=== PATIENT | male | born 1955 | race Caucasian/White ===

== ENCOUNTER 2019-03-09 07:52 | Day surgery (SDC) | payer MEDICARE, BC ==
[~2019-03-09 07:52] MED LIST: AMLO5 PO; CETI5 PO; HYDACE5; Hair, Skin & N1 EACH PO; IBUP800; LORA.5 PO; MELO7.5 PO; SILD25T PO; TEMA15 PO
--- NOTE | 2019-03-09 08:41 | NUR ---
Ambulatory in Day SurgeryPatient states colon prep results clear. History, Chart, Medications and Allergies reviewed before start of procedure.Patient confirms NPO status and agrees with scheduled surgery. Lungs clear T/O to Auscultation.
--- NOTE | 2019-03-09 10:20 | NUR ---
Patient up to Ambulate independently. Gait steady. Discharge instructions reviewed with patient. Patient verbalizes understanding. Copy given to patient to take home. Patient States Post-Procedure ride home has been arranged. Discharged via wheelchair to private car for ride home. ALL BELONINGS RETURNED TO PATIENT.
== END 2019-03-09 22:40 | disposition home or self-care (01) ==
LOC: ORSCMMR 07:52 → ORD 10:00 → ORSCMMR 10:00
PROVIDERS: Internal Medicine Gastroenterology
PROC: 0DBK8ZX Excision of Ascending Colon, Via Natural or Artificial Opening Endoscopic, Diagnostic (ICD-10-PCS; principal; 2019-03-09 09:00)
PROC: 0DB98ZX Excision of Duodenum, Via Natural or Artificial Opening Endoscopic, Diagnostic (ICD-10-PCS; principal; 2019-03-09 09:00)
PROC: 0DBM8ZX Excision of Descending Colon, Via Natural or Artificial Opening Endoscopic, Diagnostic (ICD-10-PCS; principal; 2019-03-09 09:00)
PROC: 0DBN8ZX Excision of Sigmoid Colon, Via Natural or Artificial Opening Endoscopic, Diagnostic (ICD-10-PCS; principal; 2019-03-09 09:00)
PROC: 0DB68ZX Excision of Stomach, Via Natural or Artificial Opening Endoscopic, Diagnostic (ICD-10-PCS; principal; 2019-03-09 09:00)
DX: Z12.11 Encounter for screening for malignant neoplasm of colon (principal); Z86.010 Personal history of colon polyps; D12.4 Benign neoplasm of descending colon; D12.2 Benign neoplasm of ascending colon; K63.5 Polyp of colon; R10.9 Unspecified abdominal pain; I10 Essential (primary) hypertension; Z87.891 Personal history of nicotine dependence; Z79.899 Other long term (current) drug therapy
CPT/HCPCS: 88305; 88342; J2704; J7120

== ENCOUNTER 2020-11-10 07:04 | Day surgery (SDC) | payer MEDICARE, BC ==
[~2020-11-10] VITALS: Ht 180.3 cm; Wt 83.1 kg
--- NOTE | 2020-11-10 07:34 | NUR ---
11/10/20 0734 Génesis Avery 1 TRY RIGHT HAND VALVE 2 TRY RIGHT UPPER ARM, HE MOVED, VEIN MOVED
== END 2020-11-10 09:19 | disposition home or self-care (01) ==
LOC: ORSCSDS 07:04
PROVIDERS: Internal Medicine Gastroenterology
PROC: 0DB58ZX Excision of Esophagus, Via Natural or Artificial Opening Endoscopic, Diagnostic (ICD-10-PCS; principal; 2020-11-10 08:30)
PROC: 0DB68ZX Excision of Stomach, Via Natural or Artificial Opening Endoscopic, Diagnostic (ICD-10-PCS; principal; 2020-11-10 08:30)
PROC: 0DB98ZX Excision of Duodenum, Via Natural or Artificial Opening Endoscopic, Diagnostic (ICD-10-PCS; principal; 2020-11-10 08:30)
PROC: 0D758ZZ Dilation of Esophagus, Via Natural or Artificial Opening Endoscopic (ICD-10-PCS; principal; 2020-11-10 08:30)
DX: K21.9 Gastro-esophageal reflux disease without esophagitis (principal); R13.10 Dysphagia, unspecified; I10 Essential (primary) hypertension; K90.0 Celiac disease; Z87.891 Personal history of nicotine dependence; K22.2 Esophageal obstruction; K44.9 Diaphragmatic hernia without obstruction or gangrene; Z79.899 Other long term (current) drug therapy
CPT/HCPCS: 88305; 88342; J0330; J0461; J2405; J2704; J7120

== ENCOUNTER 2024-01-21 07:08 | Day surgery (SDC) | payer MEDICARE, BC ==
[~2024-01-21] VITALS: Ht 177.8 cm; Wt 69.0 kg
[2024-01-21] MEDS ORDERED: VITAMIN C 500500 MG (07:45)
[2024-01-21] MEDS ORDERED: RED YEAST RICE55 MG (07:46)
[2024-01-21] MEDS ORDERED: Lactated Ringer's 1,000 ML IV ONE ×2 (08:33→08:39)
[2024-01-21] MEDS ORDERED: Lidocaine HCl/Pf 1% 5 ML VIAL ONE (08:38)
[2024-01-21] MEDS ORDERED: propofoL 50 ML IV ONE ×2 (08:38→09:15)
[2024-01-21 09:46] VITALS: BP 153/73
== END 2024-01-21 09:49 | disposition home or self-care (01) ==
LOC: ORSCSDS 07:08
PROVIDERS: Internal Medicine Gastroenterology
PROC: 0DBN8ZX Excision of Sigmoid Colon, Via Natural or Artificial Opening Endoscopic, Diagnostic (ICD-10-PCS; principal; 2024-01-21 08:45)
PROC: 0DBL8ZX Excision of Transverse Colon, Via Natural or Artificial Opening Endoscopic, Diagnostic (ICD-10-PCS; principal; 2024-01-21 08:45)
PROC: 0DBM8ZX Excision of Descending Colon, Via Natural or Artificial Opening Endoscopic, Diagnostic (ICD-10-PCS; principal; 2024-01-21 08:45)
DX: Z12.11 Encounter for screening for malignant neoplasm of colon (principal); D12.3 Benign neoplasm of transverse colon; D12.4 Benign neoplasm of descending colon; K63.5 Polyp of colon; R19.5 Other fecal abnormalities; Z86.010 Personal history of colon polyps; K90.0 Celiac disease
CPT/HCPCS: 88305; J2001; J2704; J7120

== ENCOUNTER 2025-03-12 13:56 | Inpatient (IN) | payer MEDICARE, BC ==
[~2025-03-12] VITALS: Ht 175.3 cm; Wt 65.5 kg
[~2025-03-12 13:56] MED LIST changes: +RED YEAST RICE55 MG; +VITAMIN C 500500 MG
[2025-03-12 14:45] LABS: BASOPHILS ABSOLUTE AUTO 0.03 K/mm3 (0.00-0.23); BASOPHILS PERCENT AUTO 0 % (0-2); EOSINOPHILS ABSOLUTE AUTO 0.01 K/mm3 (0.00-0.68); EOSINOPHILS PERCENT AUTO 0 % (0-6); Hematocrit 51.3 % (37.0-53.0); Hemoglobin 17.2 g/dL (13.5-17.5); IMMATURE GRAN ABSOLUTE AUTO 0.02 K/mm3 (0.00-0.10); IMMATURE GRAN PERCENT AUTO 0 % (0-1); LYMPHOCYTES ABSOLUTE AUTO 1.06 K/mm3 (0.84-5.20); LYMPHOCYTES PERCENT AUTO 13 % (21-46); MONOCYTES ABSOLUTE AUTO 0.52 K/mm3 (0.16-1.47); MONOCYTES PERCENT AUTO 6 % (4-13); Mean Corpuscular HGB Conc 33.5 g/dL (31.5-36.5); Mean Corpuscular Volume 89 fL (80-100); NEUTROPHILS ABSOLUTE AUTO 6.59 K/mm3 (1.96-9.15); NEUTROPHILS PERCENT AUTO 80 % (41-73); NRBC ABSOLUTE 0.00 K/mm3 (0.00-0.02); NRBC Auto 0.0 /100 WBC (0.0-0.2); Platelet Count 301 K/mm3 (150-400); RDW Coefficient Variation 13.2 % (11.7-14.2); RDW Standard Deviation 43.2 fL (35.1-46.3)
[2025-03-12 14:58] LABS: Alanine Aminotransfer (ALT/SGP 33.0 U/L (12-78); Albumin, Blood 4.4 g/dL (3.4-5.0); Albumin/Globulin Ratio 1.1 (0.8-1.8); Anion Gap 10.0 mmol/L (3-11); Aspartate Aminotrans (AST/SGOT 24.0 U/L (12-37); Bilirubin, Total 0.4 mg/dL (0.1-1.0); Blood Urea Nitrogen 16.0 mg/dL (8-24); CO2, Blood 25.0 mmol/L (21-32); Calcium, Blood 9.4 mg/dL (8.5-10.1); Chloride, Blood 105.0 mmol/L (98-108); Creatinine, Blood 0.71 mg/dL (0.60-1.20); Globulin, Blood 4.0 g/dL (2.2-4.0); Glucose, Blood 124.0 mg/dL (70-99); Potassium, Blood 4.0 mmol/L (3.5-5.5); Sodium, Blood 136.0 mmol/L (136-145); Total Protein, Blood 8.4 g/dL (6.4-8.2)
[2025-03-12] MEDS ORDERED: Labetalol HCL 5 MG/ML 4ML Injection (Single Dose) IV PRN (16:10)
[2025-03-12] MEDS ORDERED: FLU VACC TS2025(65UP)/MF59C/PF 45 MCG/0.5 ML SYRINGE IM SCH (16:20)
[2025-03-12 16:50] LABS: Anti-Xa UFH, PHA Monitoring <0.10 IU/mL; Prothrombin Time Results 11.4 Sec (9.7-11.5)
[2025-03-12] MEDS ORDERED: Heparin Sodium 5000 Units/ML 1ML MDV IV ONE (17:10)
[2025-03-12] MEDS ORDERED: Heparin Sodium,Porcine/0.5 NS 500 ML IV SCH (17:10)
[2025-03-12 17:39] LABS: CHOL/HDL RATIO 5.1; Cholesterol 238 mg/dL (50-200); HDL Cholesterol 47 mg/dL (>39); LDL/HDL RATIO 3.8; Low Density Lipoprotein Chol 177 mg/dL (0-110); Triglycerides 72 mg/dL (30-160); Very Low Density Lipoprot Chol 14 mg/dL (6-32)
[2025-03-12 21:47] VITALS: BP 161/87
[2025-03-13] VITALS (15 sets, daily range): BP systolic 138–158; BP diastolic 54–93
[2025-03-13] MEDS ORDERED: Clarify Drug Order XX ONE ×2 (00:35→07:20)
--- NOTE | 2025-03-13 06:11 | NUR ---
PT MONITORED DURING THE SHIFT,NO C/O CHEST PAIN OR SOB.TROPONIN LEVELS ELEVATED, NOTIFIED.NO NEW ORDERS GIVEN.PT CONTINUES ON HEPARIN GTT AT 15UNITS/KG/HR.PT STATES THAT HE DID NOT SLEEP WELL BECAUSE HE USES [employer] AND [employer] TO HELP HIM SLEEP.PT STATES THAT HE HOPES TO GO HOME TODAY TO TAKE CARE OF HIS AND HIS [employer] PLANT.STATES THAT HE HAS HAD THE [employer] PLANT FOR 5 MONTHS AND HE WOULD NOT WANT THE PLANT TO .PT EDUCATED ON HIS MEDICAL DIAGNOSIS.PT VERBALIZES UNDERSTANDING BUT STILL HOPES TO GO HOME TODAY.PT WIDE AWAKE THIS MORNING,DENIES CHEST PAIN,DENIES NEEDS.CALL LIGHT AND PT'S ITEMS WITHIN REACH.MONITORING ONGOING PER CAREPLAN.
[2025-03-13 06:37] LABS: BASOPHILS ABSOLUTE AUTO 0.04 K/mm3 (0.00-0.23); BASOPHILS PERCENT AUTO 1 % (0-2); EOSINOPHILS ABSOLUTE AUTO 0.06 K/mm3 (0.00-0.68); EOSINOPHILS PERCENT AUTO 1 % (0-6); Hematocrit 46.1 % (37.0-53.0); Hemoglobin 15.7 g/dL (13.5-17.5); IMMATURE GRAN ABSOLUTE AUTO 0.02 K/mm3 (0.00-0.10); IMMATURE GRAN PERCENT AUTO 0 % (0-1); LYMPHOCYTES ABSOLUTE AUTO 1.72 K/mm3 (0.84-5.20); LYMPHOCYTES PERCENT AUTO 22 % (21-46); MONOCYTES ABSOLUTE AUTO 0.67 K/mm3 (0.16-1.47); MONOCYTES PERCENT AUTO 9 % (4-13); Mean Corpuscular HGB Conc 34.1 g/dL (31.5-36.5); Mean Corpuscular Volume 89 fL (80-100); NEUTROPHILS ABSOLUTE AUTO 5.36 K/mm3 (1.96-9.15); NEUTROPHILS PERCENT AUTO 68 % (41-73); NRBC ABSOLUTE 0.00 K/mm3 (0.00-0.02); NRBC Auto 0.0 /100 WBC (0.0-0.2); Platelet Count 266 K/mm3 (150-400); RDW Coefficient Variation 13.2 % (11.7-14.2); RDW Standard Deviation 42.8 fL (35.1-46.3)
[2025-03-13 06:56] LABS: Anion Gap 9.0 mmol/L (3-11); Blood Urea Nitrogen 15.0 mg/dL (8-24); CO2, Blood 25.0 mmol/L (21-32); Calcium, Blood 9.3 mg/dL (8.5-10.1); Chloride, Blood 106.0 mmol/L (98-108); Creatinine, Blood 0.64 mg/dL (0.60-1.20); Glucose, Blood 94.0 mg/dL (70-99); Potassium, Blood 3.6 mmol/L (3.5-5.5); Sodium, Blood 136.0 mmol/L (136-145)
--- NOTE | 2025-03-13 12:00 | NUR ---
MORNING SUMMARY THE PT IS A&OX4, ANXIOUS, AND HAVING DIFFICULTY RETAINING EDUCATION D/T THINGS THE PT HAS LOOKED UP ONLINE ABOUT HIS HEALTH. IN DEPTH EDUCATION PROVIDED TO THE PT ABOUT DIET, CHOLESTEROL, AND CARDIAC CARE. DR. MORALES, CARDIOLOGY, ALSO PROVIDED EDUCATION. PLAN FOR AN ANGIOGRAM THIS AFTERNOON. PT WILL REMAIN NPO. ON TELE HE IS SR. AND BP REMAINS STABLE. HE HAS DENIES ANY ANGINA OR CHEST PRESSURE. THE PT IS ON A HEPARIN GTT PER EMAR. HEPARIN GTT DISCUSSED WITH PHARMACY AT BEDSIDE SHIFT REPORT THIS MORNING ABOUT 0715 (SEE EMAR FOR DETAILS). THE PT'S BROTHER LYNN HAS BEEN AT BEDSIDE AND UPDATED ON CARE. SEE NOTES FOR UPDATES.
[2025-03-13] MEDS ORDERED: NS 1,000 ML IV ONE ×2 (12:12→12:41)
[2025-03-13] MEDS ORDERED: Heparin Sodium 1000 Units/ML 10ML MDV ONE (12:12)
[2025-03-13] MEDS ORDERED: Nitroglycerin 2 MG/20 ML BTL ONE (12:12)
[2025-03-13] MEDS ORDERED: Verapamil HCL 2.5 MG/ML 2ML Injection ONE (12:12)
[2025-03-13] MEDS ORDERED: NS 250 ML IV ONE (12:12)
[2025-03-13] MEDS ORDERED: FentaNYL Citrate 50 MCG/ML 2 ML Injection ONE (13:22)
[2025-03-13] MEDS ORDERED: Midazolam HCl 1MG / ML 2ML Vial ONE ×2 (13:22→13:58)
--- NOTE | 2025-03-13 15:00 | NUR ---
ANGIOGRAM THE PT LEFT FOR AN ANGIOGRAM ABOUT 1315 THIS AFTERNOON, HE RETURNED TO THE ROOM ABOUT 1412. RIGHT RADIAL ACCESS NOTED WITH A TRBAND INTACT; 8CC'S OF AIR IN THE TR BAND. SLIGHT DISCOLORATION TO DISTAL FINGERS, CAP REFILL <3SEC. GOOD OXYGEN PLEATH FROM HIS DISTAL FINGERS. ON TELE HE REMAINS SR AND BP IS STABLE. THE PT WILL BE TRANSFERING TO [facility] FOR [facility]. THIS RN CALLED THE PT'S BROTHER LYNN AT [phone] TO UP DATE HIM ON CARE. ALSO, THIS RN TALKED TO THE PT'S DAUGHTER REJI AT [phone] AND UPDATED HER. THE ACCEPTING PHYSICIAN IS DR. RODRÍGUEZ.DR. MORALES WANTS THE PT'S HEPARIN TO BE RESUMED SOON THE TR BAND IS RECOVERED. THIS WAS DISCUSSED WITH PHARMACY. AWAITING FOR A BED AT THIS TIME. SEE NOTES FOR UPDATES.
--- NOTE | 2025-03-13 18:55 | NUR ---
HEPARIN RESTARTED PER DR. WARE ORDERS. TR BAND HAS BEEN FULLY DEFLATED PER PROTOCOL. TRBAND IS STILL IN PLACE W/ NO AIR OVER THE SITE. VITAL SIGNS REMAIN STABLE. AREA NONTENDER AND W/O HEMATOMA. THERE IS SMALL BRUISING AROUND THE INSERTION WHERE A SMALL HEMATOMA HAD FORMED ABOUT TWO HOURS AFTER ARRIVING BACK TO THE UNIT. WHEN HEMATOMA WAS PRESENT MANNUAL PRESSURE HELD FOR 10 MINUTES AND 2CC OF AIR WERE REPLACED IN THE BAND THAT HAD BEEN PREVIOUSLY TAKEN OUT.
[2025-03-14 00:03] VITALS: BP 150/91
[2025-03-14 01:07] LABS: BASOPHILS ABSOLUTE AUTO 0.04 K/mm3 (0.00-0.23); BASOPHILS PERCENT AUTO 0 % (0-2); EOSINOPHILS ABSOLUTE AUTO 0.06 K/mm3 (0.00-0.68); EOSINOPHILS PERCENT AUTO 1 % (0-6); Hematocrit 49.4 % (37.0-53.0); Hemoglobin 17.0 g/dL (13.5-17.5); IMMATURE GRAN ABSOLUTE AUTO 0.02 K/mm3 (0.00-0.10); IMMATURE GRAN PERCENT AUTO 0 % (0-1); LYMPHOCYTES ABSOLUTE AUTO 2.29 K/mm3 (0.84-5.20); LYMPHOCYTES PERCENT AUTO 24 % (21-46); MONOCYTES ABSOLUTE AUTO 0.86 K/mm3 (0.16-1.47); MONOCYTES PERCENT AUTO 9 % (4-13); Mean Corpuscular HGB Conc 34.4 g/dL (31.5-36.5); Mean Corpuscular Volume 88 fL (80-100); NEUTROPHILS ABSOLUTE AUTO 6.11 K/mm3 (1.96-9.15); NEUTROPHILS PERCENT AUTO 65 % (41-73); NRBC ABSOLUTE 0.00 K/mm3 (0.00-0.02); NRBC Auto 0.0 /100 WBC (0.0-0.2); Platelet Count 263 K/mm3 (150-400); RDW Coefficient Variation 13.1 % (11.7-14.2); RDW Standard Deviation 42.4 fL (35.1-46.3)
[2025-03-14 01:22] LABS: Anion Gap 10.0 mmol/L (3-11); Blood Urea Nitrogen 15.0 mg/dL (8-24); CO2, Blood 25.0 mmol/L (21-32); Calcium, Blood 9.5 mg/dL (8.5-10.1); Chloride, Blood 105.0 mmol/L (98-108); Creatinine, Blood 0.6 mg/dL (0.60-1.20); Glucose, Blood 110.0 mg/dL (70-99); Potassium, Blood 3.5 mmol/L (3.5-5.5); Sodium, Blood 136.0 mmol/L (136-145)
[2025-03-14] MEDS ORDERED: Dose Adjust by Pharmacy XX STA (02:21)
[2025-03-14 04:40] VITALS: BP 145/76
--- NOTE | 2025-03-14 05:18 | NUR ---
REPORT GIVEN TO JAMISON KIM AT [facility]. PT TO BE TRANSFERRED TO ROOM 279 ON CCU THERE.
[2025-03-14 05:24] VITALS: BP 145/76
--- NOTE | 2025-03-14 06:12 | NUR ---
PT STABLE THROUGHOUT THE SHIFT. PT REMAINS AOX4, SBA D/T IV POLE MANAGEMENT. PT TOLERATING HEPARIN INFUSION WELL. PT HAS BEEN CHEST PAIN FREE SINCE ASSUMPTION OF CARE. RT ANGIO SITE HEMATOMA STABLE AND SITE IS MARKED WITH SKIN MARKING PEN. GOOD PULSE PROXIMAL AND DISTAL TO PUNCTURE SITE. NO BLEEDING FROM ANGIO SITE. PT REMAINS IN ARMBOARD WITH TR BAND REMOVED. PT HAS BEEN EDUCATED ON LIMB RESTRICTIONS AND VERBALIZES UNDERSTANDING. PT HAS HAD GOOD URINARY OUTPUT THIS SHIFT BUT HAS BEEN UNABLE TO USE URINAL EFFECTIVELY AND NO MEASUREMENT RECORDED. REPORT GIVEN TO JAMISON KIM AT [facility] CCU. TRANSFER PACKET PUT TOGETHER BY ESTHETIC DERMATOLOGIST. PT AWAITING TRANSPORT AT THIS TIME.
== END 2025-03-14 06:38 | disposition short-term general hospital (02) | DRG 281 ==
LOC: ER 13:56 → PCU 16:04
PROVIDERS: Student in an Organized Health Care Education/Training Program; ADMIT Family Medicine
PROC: 4A023N7 Measurement of Cardiac Sampling and Pressure, Left Heart, Percutaneous Approach (ICD-10-PCS; principal; 2025-03-13)
PROC: B3101ZZ Fluoroscopy of Thoracic Aorta using Low Osmolar Contrast (ICD-10-PCS; 2025-03-13)
DX: I21.4 Non-ST elevation (NSTEMI) myocardial infarction (principal); I16.1 Hypertensive emergency; I10 Essential (primary) hypertension; E78.5 Hyperlipidemia, unspecified; I25.10 Atherosclerotic heart disease of native coronary artery without angina pectoris; R73.03 Prediabetes; I71.40 Abdominal aortic aneurysm, without rupture, unspecified; F12.90 Cannabis use, unspecified, uncomplicated; I73.9 Peripheral vascular disease, unspecified; K90.0 Celiac disease; I71.43 Infrarenal abdominal aortic aneurysm, without rupture; I48.91 Unspecified atrial fibrillation; Z87.891 Personal history of nicotine dependence; Z90.89 Acquired absence of other organs; Z98.890 Other specified postprocedural states; Z88.5 Allergy status to narcotic agent; Z91.09 Other allergy status, other than to drugs and biological substances
CPT/HCPCS: 36415; 71046; 71275; 74174; 76937; 80048; 80053; 80061; 83036; 83690; 84443; 84484; 85025; 85520; 85610; 85730; 93005; 93010; 93306; 93454; 99152; 99153; 99285-25; A9270; C1769; C1887; C1894; J1644; J2250; J3010; J7030; J7050; Q9967